=== PATIENT | female | born 1950 | race Caucasian/White ===

== ENCOUNTER → 2021-09-18 | Outpatient (CLI) | payer MEDICARE, OTHER ==
--- NOTE | 2021-09-18 09:10 | RAD ---
Site ID: [id number] EXAMINATION: US ABDOMEN OR LOWER BACK LIMITED. TECHNIQUE: Sonographic evaluation of the right upper quadrant with registered representative images obtained HISTORY: 71 years Female elevated liver enzymes. . COMPARISON: None. FINDINGS: The pancreas is appears echogenic with no definite focal lesion. The liver is measures 17.7 cm craniocaudally. Echogenicity of the hepatic parenchyma is increased wh ich may relate to hepatitis or fatty infiltration. No focal liver masses are identified. The portal vein is not well evaluated but has visualized segments with suggestion of hepatopedal flow. The CBD caliber is 4 mm. The gallbladder was surgically removed. The right kidney measures 9.5 cm in length. The lower pole is not well seen. No hydronephrosis. No fluid collection in the upper right abdomen is seen. IMPRESSION: Increased liver echogenicity may relate to hepatitis or fatty infiltration. The liver size is borderl ine enlarged. Electronically signed by: Octaviano Purvis MD (09/18/2021 9:07 AM) [id number]
== END ==
LOC: US 08:29
PROVIDERS: ATTEND Family Medicine
DX: R74.8 Abnormal levels of other serum enzymes (principal); Z90.49 Acquired absence of other specified parts of digestive tract
CPT/HCPCS: 76705